=== PATIENT | male | born 2000 | race Caucasian/White ===

== ENCOUNTER 2020-07-03 09:24 | Emergency (ER) | payer BC, OTHER ==
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
--- NOTE | 2020-07-03 11:53 | CR ---
Left knee: 4 views of the left knee were obtained. Comparison: No previous study. Minimal joint effusion is believed to be present. Medial and lateral joint spaces are preserved. No acute fracture, dislocation or other bony abnormality is appreciated. Impression: 1. Small joint effusion. 2. Left knee exam is otherwise unremarkable. Diagnostic code #2
== END 2020-07-03 13:10 | disposition home or self-care (01) ==
LOC: JD.ED 09:24
DX: S83.412A Sprain of medial collateral ligament of left knee, initial encounter (principal); V28.4XXA Motorcycle driver injured in noncollision transport accident in traffic accident, initial encounter
CPT/HCPCS: 73564-26-LT; 73564-LT; 99283; 99284-25